=== PATIENT | male | born 1940 | race Caucasian/White ===

== ENCOUNTER 2017-03-25 15:18 | Inpatient (IN) | payer MEDICARE, BC ==
[2017-03-25] MEDS ORDERED: NS 0.9% 1000 ML* 1,000 ML IV ONE ×2 (15:51→19:59)
[2017-03-25 16:53] LABS: Hematocrit 38 % (42-52); Hemoglobin 12.6 g/dl (14.0-18.0); Mean Corpuscular HGB Conc 33 g/dl (31-36); Mean Corpuscular Hemoglobin 31 pg (27-31); Mean Corpuscular Volume 94 fL (80-94); Mean Platelet Volume 7 um3 (7.4-10.4); Red Blood Count 4.04 10^6/ul (4.0-5.4); Red Cell Distribution Width 14 % (10.5-15); White Blood Count 9.5 10^3/ul (3.5-10.8)
--- NOTE | 2017-03-25 17:04 | RAD ---
INDICATION: Productive cough. COMPARISON: There are no prior studies available for comparison. TECHNIQUE: Dual-energy PA and lateral views of the chest were obtained. FINDINGS: The heart appears to be within normal limits in size. The patient appears to be status post mitral valve surgery. The lungs are hyperinflated. There is an infiltrate which projects over the right midlung likely within the right upper lobe which is moderate in size. No pleural effusion is seen. IMPRESSION: RIGHT UPPER LOBE INFILTRATE, RECOMMEND FOLLOW-UP CHEST X-RAYS TO RESOLUTION.
[2017-03-25 17:05] LABS: Albumin 3.7 g/dL (3.2-5.2); BUN/Creatinine Ratio 16.1 (8-20); C Reactive Protein 204.01 mg/L (< 5.00); Calcium 8.9 mg/dL (8.6-10.3); EGFR African American 101.9 (>60); EGFR Non-African American 79.2 (>60); Globulin 3.5 g/dL (2-4); Total Bilirubin 0.6 mg/dL (0.2-1.0); Total Protein 7.2 g/dL (6.4-8.9)
[2017-03-25 17:08] LABS: Troponin I 0.02 ng/mL (<0.04)
[2017-03-25] MEDS ORDERED: Levofloxacin 750 MG IVPREMIX(* 750 MG/150 ML BAG IVPB ONE (17:41)
--- NOTE | 2017-03-25 22:16 | HP ---
CC: Derian Pickering MD, [facility] MEDICINE HISTORY AND PHYSICAL: DATE OF ADMISSION: 03/25/17 PRIMARY CARE PROVIDER: Derian Pickering MD in [place], [place]. ATTENDING PHYSICIAN: Rupinder Larson DO * (dictation provided by Genoveva Norris NP ) CHIEF COMPLAINT: Cough and fever. HISTORY OF PRESENT ILLNESS: Mr. Cervantes is a 77-year-old male with a past medical history of AFib, mitral valve repair, hypertension, hyperlipidemia, COPD , and prostate cancer status post radiation who presented to the hospital on with concern for cough and fever. Mr. Cervantes states he was in his normal state of health until about 4 days ago. Mr. Cervantes lives in [facility] and he came up to the [facility] on Monday to go hunting. His , who had a cold, joined him on Monday. The following day the patient noted that he then began to have some cold type symptoms, i.e. sniffling, runny nose, congestion and cough. By Monday, he was having fevers to 101.9 with diaphoresis and chills/rigors. He ultimately decided to come to the emergency room because he was having a small amount of blood in his sputum. He is on warfarin for history of atrial fibrilllation. He denies any chest pain. He has had no nausea, vomiting, diarrhea, abdominal pain. He does not feel short of breath. In the emergency room, Mr. Cervantes was confirmed to have an elevated INR to 4.01. He has no leukocytosis. He has a mild fever to 100.8. Chest x-ray shows concern for right upper lobe pneumonia. CRP is quite elevated to 204.01. He is not hypoxic on room air. PAST MEDICAL HISTORY: 1. Atrial fibrillation, status post ablation. 2. Mitral valve repair complicated by a staph infection at the femoral insertion site. 3. Gout. 4. Hypertension. 5. Hyperlipidemia. 6. COPD. 7. Asbestos exposure. 8. Prostate cancer with radiation. 9. Hernia repair x3. MEDICATIONS: 1. Aspirin 81 mg p.o. daily. 2. Warfarin 5 mg every day of the week except Monday when he takes 7.5 mg. 3. Allopurinol 300 mg p.o. daily. 4. Atorvastatin 10 mg p.o. 1700. 5. Diltiazem 120 mg p.o. daily. 6. Losartan 25 mg p.o. daily. ALLERGIES: No known drug allergies. FAMILY HISTORY: The patient reports his mom related to ALS and dad related to prostate cancer. SOCIAL HISTORY: The patient is a former smoker, he quit 30 years ago. He drinks about 3 to 4 alcoholic beverages per week. Denies any drug use. He lives with his significant other. At this point, he is not willing to name a healthcare proxy. REVIEW OF SYSTEMS: Positive for fevers. Positive for chills. No unintended weight loss. Cardiac: No chest pain. No edema. Respiratory: Positive for cough. Positive for minimal hemoptysis. No shortness of breath. GI: No nausea, vomiting, diarrhea, or abdominal pain. : No gross hematuria or dysuria. Neuro: No focal weakness or sensory loss. Eyes: No visual complaints. ENT: No dysphagia. Musculoskeletal: No arthralgias or myalgias. Skin: The patient has a small lump in his left groin, which he attributes to hematoma from his most recent hernia surgery. His current surgeon is aware and there is planned followup in May. The area is smaller now than initially and is resolving. Psych: No depression or anxiety. PHYSICAL EXAMINATION GENERAL: Mr. Cervantes is lying in bed with his significant other at the bedside. VITAL SIGNS: 100.8 temperature, heart rate 83, respiratory rate 29, O2 saturation 91% on room air, blood pressure 135/70. LUNGS: Clear to auscultation bilaterally, although they appear diminished on the right. There is good aeration. No accessory muscle use. HEART: S1, S2. No murmur, rub, or gallop and regular. ABDOMEN: Soft, nontender with bowel sounds positive x4. EXTREMITIES: No cyanosis or edema. NEURO: He is alert and oriented x3. He moves all extremities equally. There is no facial asymmetry or focal weakness. Extraocular movements are intact. SKIN: Intact. LABORATORY DATA/DIAGNOSTIC STUDIES: Sodium 135, potassium 4.0, chloride 102, serum bicarbonate 28, BUN 15, creatinine 0.93, glucose 115. CRP 204.01. WBC 9.5, hemoglobin 12.6, hematocrit 38, platelet count 214,000. INR 4.01. Chest x-ray shows upper right lobe infiltrate. EKG shows sinus rhythm with heart rate in 80s and ischemia. ASSESSMENT: Mr. Cervantes is a 77-year-old male with past medical history of atrial fibrillation status post ablation who continues on warfarin therapy as well as mitral valve repair, hypertension, hyperlipidemia, chronic obstructive pulmonary disease who presents to the hospital today with concern for cough and fever, found to have pneumonia. Our plans are for observation in the hospital for the followin. Pneumonia: Plan to treat with ceftriaxone and azithromycin as Levaquin is going to further disrupt his INR. Blood cultures have been sent. Urine, Legionella and Strep pneumo antigens are pending. The patient is not hypoxic on room air. His lactic acid is 1.0. He meets sepsis criteria. He is concerned for sepsis, although his temperature is only 100.8 and he is tachypneic. I will finish 30 mL/kg bolus by adding an additional 1645 mL fluids now. 2. Atrial fibrillation. The patient is supratherapeutic with his INR. Plan to hold warfarin. Recheck INR in the a.m. 3. Hypertension. Continue diltiazem and losartan. 4. DVT prophylaxis with supratherapeutic INR. 5. Code status is full code. TIME SPENT: Approximately 60 minutes were spent on the admission of this patient, and more than half of the time was spent with the patient at the bedside reviewing the events leading up to this hospitalization, performing the physical examination and reviewing the plan of care. GENOVEVA NORRIS NP [id number]/[facility] #: [id number] SUSAN
[2017-03-26] MEDS ORDERED: Azithromycin TAB* 250 MG PO ONE (09:00)
[2017-03-26] MEDS: Allopurinol TAB* 300 MG PO SCH (10:22)
[2017-03-26] MEDS: Losartan TAB* 25 MG PO SCH (10:22)
[2017-03-26] MEDS: cefTRIAXone VIAL(*) 1,000 MG in NS 0.9% 50 ML* 50 ML IVPB SCH (10:22)
[2017-03-26] MEDS: Diltiazem CD CAP* 120 MG PO SCH (10:22)
--- NOTE | 2017-03-26 10:57 | PN ---
Subjective Date of Service: 03/26/17 Interval History: This is a 77 yo male with afib, HTN, HLD, COPD and h/o prostate CA who presented with c/o cough and fever, admitted with a RUL PNA. He has been started on Ceftriaxone and azithromycin. He continues to have a productive cough and feels dyspneic with generalized malaise this am. No significant improvement since admission. Objective Active Medications: Acetaminophen (Tylenol Tab*) 650 mg PO Q6H PRN PRN Reason: FEVER Allopurinol (Zyloprim Tab*) 300 mg PO DAILY [facility] Last Admin: 03/26/17 10:22 Dose: 300 mg Atorvastatin Calcium (Lipitor*) 10 mg PO 1700 [facility] Diltiazem HCl (Cardizem Cd Cap*) 120 mg PO DAILY [facility] Last Admin: 03/26/17 10:22 Dose: 120 mg Ceftriaxone Sodium 1,000 mg/ (Sodium Chloride) 50 mls @ 200 mls/hr IVPB Q24H [facility] Last Admin: 03/26/17 10:22 Dose: 200 mls/hr Losartan Potassium (Cozaar Tab*) 25 mg PO DAILY [facility] Last Admin: 03/26/17 10:22 Dose: 25 mg Vital Signs: Temp Pulse Resp BP Pulse Ox 97.5 F 64 16 118/55 99 03/26/17 03:53 03/26/17 03:53 03/26/17 03:53 03/26/17 03:53 03/26/17 03:53 Oxygen Devices in Use Now: Nasal Cannula Appearance: Mildly ill 77 yo gentleman who appears slightly younger than stated age in NAD. Accompanied by his Respiratory: Symmetrical Chest Expansion and Respiratory Effort, Clear to Auscultation Cardiovascular: NL Sounds; No Murmurs; No JVD, RRR Abdominal: NL Sounds; No Tenderness; No Distention Extremities: No Edema Skin: No Rash or Ulcers Neurological: Alert and Oriented x 3 Result Diagrams: 03/25/17 16:25 03/25/17 16:25 Microbiology and Other Data: Microbiology 03/25/17 19:37 Gram Stain - Final Sputum Diagnostic Imaging: CXR - RUL PNA Assess/Plan/Problems-Billing Assessment: This is a 77 yo gentleman with afib, HTN, HLD, COPD, and h/o prostate CA and mitral valve repair who presents with c/o cough and SOB with a RUL infiltrate appreciated on CXR. - Patient Problems (1) Pneumonia Comment: RUL infiltrate Continues to be quite symptomatic Cont ceftriaxone/azithromycin (2) COPD (chronic obstructive pulmonary disease) Comment: No assoc exacerbation Use prn Duonebs (3) Atrial fibrillation Comment: Rate controlled Anticoagulated with Coumadin (4) Supratherapeutic INR Comment: INR 4 at admission with mild hemoptysis Holding Coumadin Repeat INR tomorrow (5) HTN (hypertension) Comment: Normotensive Cont home losartan and diltiazem (6) HLD (hyperlipidemia) Comment: Cont statin (7) Full code status (8) DVT prophylaxis Comment: Coumadin Status and Disposition: Transition to inpatient. Possible dc home tomorrow
[2017-03-26] MEDS ORDERED: Albuterol/Ipratropium NEB.SOL* Albuterol 2.5 MG/Ipratropium 0.5 MG 3 ML INH PRN (11:00)
--- NOTE | 2017-03-26 15:23 | ED ---
Kathia Rihcard Nilda, scribed for Scooter Barroso MD on 03/25/17 at 1650 . Respiratory - HPI Summary HPI Summary: This patient is a 77 year old M presenting to [facility] accompanied by with a chief complaint of hemoptysis today. Pt states cold symptoms began four days ago and progressively worsened. He reports exacerbated SOB from baseline (PMHx COPD), cough, rhinorrhea, and fever (102 F, last night). The patient denies CP. Symptoms are alleviated and aggravated by nothing. Pain is rated 0/10 in severity. - History of Current Complaint Chief Complaint: EDShortnessOfBreath Stated Complaint: SHORT OF BREATH,COUGH Time Seen by Provider: 03/25/17 15:51 Hx Obtained From: Patient Onset/Duration: Sudden Onset Pain Intensity: 0 Character: Cough (Productive), Dyspnea at Rest Sputum Color: Red (Blood) Aggravating Factor(s): Nothing Alleviating Factor(s): Nothing Associated Signs and Symptoms: Fever, SOB, Hemoptysis - Allergy/Home Medications Allergies/Adverse Reactions: Allergies Allergy/AdvReac Type Severity Reaction Status Date / Time No Known Allergies Allergy Verified 03/25/17 15:30 PMH/Surg Hx/FS Hx/Imm Hx Respiratory History: Reports: Hx Chronic Obstructive Pulmonary Disease (COPD) Sensory History: Denies: Hx Legally Blind EENT History: Denies: Hx Deafness Infectious Disease History: No Infectious Disease History: Denies: Traveled Outside the [place] in Last 30 Days - Family History Known Family History: Positive: Diabetes, Other - HLD, ALS - Social History Lives: With Family Alcohol Use: Weekly Substance Use Type: Reports: None Smoking Status (MU): Former Smoker Review of Systems Positive: Fever Positive: Nasal Discharge Negative: Chest Pain Positive: Shortness Of Breath, Cough - including hemoptysis All Other Systems Reviewed And Are Negative: Yes Physical Exam - Summary Physical Exam Summary: VITAL SIGNS: Reviewed. GENERAL: Patient is a well-developed and nourished male who is lying comfortable in the stretcher. Patient is not in any acute respiratory distress. HEAD AND FACE: No signs of trauma. No ecchymosis, hematomas or skull depressions. No sinus tenderness. EYES: PERRLA, EOMI x 2, No injected conjunctiva, no nystagmus. EARS: Hearing grossly intact. Ear canals and tympanic membranes are within normal limits. MOUTH: Oropharynx within normal limits. NECK: Supple, trachea is midline, no adenopathy, no JVD, no carotid bruit, no c- spine tenderness, neck with full ROM. CHEST: Symmetric, no tenderness at palpation LUNGS: No wheezing. Right lower lobe crackles. CVS: Regular rate and rhythm, S1 and S2 present, no murmurs or gallops appreciated. ABDOMEN: Soft, non-tender. No signs of distention. No rebound no guarding, and no masses palpated. Bowel sounds are normal. EXTREMITIES: FROM in all major joints, no edema, no cyanosis or clubbing. NEURO: Alert and oriented x 3. No acute neurological deficits. Speech is normal and follows commands. SKIN: Dry and warm. Febrile. Triage Information Reviewed: Yes Vital Signs On Initial Exam: Initial Vitals Temp Pulse Resp BP Pulse Ox 100.8 F 87 32 146/70 93 03/25/17 15:30 03/25/17 15:30 03/25/17 15:30 03/25/17 15:30 03/25/17 15:30 Vital Signs Reviewed: Yes - Roger Coma Scale Coma Scale Total: 15 Diagnostics - Vital Signs Vital Signs Temp Pulse Resp BP Pulse Ox 03/25/17 15:30 100.8 F 87 32 146/70 93 - Laboratory Result Diagrams: 03/25/17 16:25 03/25/17 16:25 Lab Statement: Any lab studies that have been ordered have been reviewed, and results considered in the medical decision making process. - Radiology CXR Radiology Interpretation Completed By: Radiologist - CXR, per radiologist, reveals right upper lobe infiltrate. Recommend follow-up chest x-rays to resolution. ED physician reviewed this report and agrees. - EKG 1616 Cardiac Rate: NL EKG Rhythm: Sinus Rhythm - 82 bpm EKG Interpretation: no ST elevation. Disposition - Course Assessment/Plan: This patient is a 77 year old M presenting to [facility] accompanied by with a chief complaint of hemoptysis today. Pt states cold symptoms began four days ago and progressively worsened. He reports exacerbated SOB from baseline (PMHx COPD), cough, rhinorrhea, and fever (102 F, last night) . The patient denies CP. Symptoms are alleviated and aggravated by nothing. Pain is rated 0/10 in severity. Pending labs, CXR, and EKG. EKG reveals NSR, 82 bpm, and no ST elevation. CXR, per radiologist, reveals right upper lobe infiltrate. Recommend follow-up chest x-rays to resolution. ED physician reviewed this report and agrees. [1748] Dr. Ireland (hospitalist) agrees to admit pt. In the ED course, the patient was given IV fluids and Levaquin. The pt is hemodynamically stable, alert and oriented x3. Pt will be admitted with Dx of PNA. - Diagnoses Provider Diagnoses: Pneumonia - Physician Notifications Discussed Care Of Patient With: Krupa Ireland - Hospitalist Time Discussed With Above Provider: 17:48 Instructed by Provider To: Admit As Inpatient Discharge - Discharge Plan Condition: Stable Disposition: ADMITTED TO [facility] Referrals: No Primary Care Phys,NOPCP [Primary Care Provider] - The documentation as recorded by the Kathia saucedo Nilda accurately reflects the service I personally performed and the decisions made by Dharmesh burgess Walter, MD.
[2017-03-26] MEDS ORDERED: Levofloxacin 750 MG IVPREMIX(* 750 MG/150 ML BAG IVPB SCH (18:00)
[2017-03-26] MEDS: Atorvastatin* 10 MG TAB PO SCH (18:26)
[2017-03-26] MEDS: Acetaminophen TAB* 325 MG PO PRN (23:41)
[2017-03-27 07:09] LABS: Hematocrit 36 % (42-52); Mean Corpuscular HGB Conc 34 g/dl (31-36); Mean Corpuscular Hemoglobin 32 pg (27-31); Mean Corpuscular Volume 94 fL (80-94); Mean Platelet Volume 7 um3 (7.4-10.4); Red Blood Count 3.82 10^6/ul (4.0-5.4); Red Cell Distribution Width 14 % (10.5-15); White Blood Count 7.4 10^3/ul (3.5-10.8)
[2017-03-27 07:22] LABS: BUN/Creatinine Ratio 14.1 (8-20); Calcium 9.2 mg/dL (8.6-10.3); EGFR Non-African American 87.9 (>60)
[2017-03-27] MEDS: Diltiazem CD CAP* 120 MG PO SCH (10:03)
[2017-03-27] MEDS: Losartan TAB* 25 MG PO SCH (10:03)
[2017-03-27] MEDS: Allopurinol TAB* 300 MG PO SCH (10:04)
[2017-03-27] MEDS: cefTRIAXone VIAL(*) 1,000 MG in NS 0.9% 50 ML* 50 ML IVPB SCH (10:06)
--- NOTE | 2017-03-27 11:41 | PN ---
Subjective Date of Service: 03/27/17 Interval History: Patient seen and examined at bedside Patient reports breathing improved. Still has cough. During cough he has bulging on left chest wall. Painful during cough but not painful at rest. States this started happening shortly after his admission. Still hypoxic requiring 1L of oxygen. Family History: Unchanged from Admission Social History: Unchanged from Admission Past Medical History: Unchanged from Admission Objective Active Medications: Acetaminophen (Tylenol Tab*) 650 mg PO Q6H PRN Albuterol/Ipratropium (Duoneb (Albuterol 2.5 Mg/Ipratropium 0.5 Mg)) 1 neb INH Q4H PRN Allopurinol (Zyloprim Tab*) 300 mg PO DAILY [facility] Atorvastatin Calcium (Lipitor*) 10 mg PO 1700 [facility] Diltiazem HCl (Cardizem Cd Cap*) 120 mg PO DAILY [facility] Ceftriaxone Sodium 1,000 mg/ (Sodium Chloride) 50 mls @ 200 mls/hr IVPB Q24H [facility] Losartan Potassium (Cozaar Tab*) 25 mg PO DAILY [facility] Vital Signs Temp Pulse Resp BP Pulse Ox 98.6 F 53 18 117/53 95 03/27/17 07:43 03/27/17 07:43 03/27/17 08:00 03/27/17 07:43 03/27/17 08:00 Oxygen Devices in Use Now: None Appearance: sitting up in bed, NAD Eyes: No Scleral Icterus, PERRLA Ears/Nose/Mouth/Throat: NL Teeth, Lips, Gums Neck: NL Appearance and Movements; NL JVP Respiratory: Symmetrical Chest Expansion and Respiratory Effort, Clear to Auscultation, - - when coughing bulge on R chest wall; No crepitus or palpable mass Cardiovascular: NL Sounds; No Murmurs; No JVD, RRR Abdominal: NL Sounds; No Tenderness; No Distention Extremities: No Edema Skin: No Rash or Ulcers Neurological: Alert and Oriented x 3, NL Muscle Strength and Tone Lines/Tubes/Other Access: Clean, Dry and Intact Peripheral IV Nutrition: Taking PO's Result Diagrams: 03/27/17 06:46 03/27/17 06:46 Microbiology and Other Data: . Diagnostic Imaging: CXR - RUL PNA Assess/Plan/Problems-Billing This is a 77 yo gentleman with afib, HTN, HLD, COPD, and h/o prostate CA and mitral valve repair who presents with c/o cough and SOB with a RUL infiltrate appreciated on CXR. - Patient Problems (1) Pneumonia Comment: Continue ceftriaxone and zithromax. Will get CT chest to assess L chest wall defect during coughing. Surgical consult to assess. Wean oxygen. (2) Supratherapeutic INR Comment: INR to 2.4. Restart warfarin tonight. (3) Atrial fibrillation Comment: Rate controlled. Anticoagulated with Coumadin (4) COPD (chronic obstructive pulmonary disease) Comment: Use prn Duonebs (5) HTN (hypertension) Comment: Normotensive. Continue home losartan and diltiazem (6) HLD (hyperlipidemia) Comment: Continue statin (7) DVT prophylaxis Current Visit: Yes Comment: INR 2.4 (8) Full code status Status and Disposition: Inpatient. Wean oxygen and will get chest CT to assess right chest wall defect.
--- NOTE | 2017-03-27 12:15 | RAD ---
INDICATION: Pneumonia seen on recent chest x-ray COMPARISON: Chest x-ray dated March 25, 2017 TECHNIQUE: Axial source images of the chest were acquired without intravenous contrast from just above the lung apices to the base of the diaphragm. Coronal and sagittal reconstructed images were acquired. FINDINGS: There are small bibasilar pleural effusions slightly larger on the right in the left. There is patchy density obscuring the right upper and dependent right lower lobes. In the anterior dependent aspect of the left upper lobe there is a focus of pleural-based groundglass density measuring up to 3.8 cm in greatest axial dimension. There is linear based density in the dependent portion of the left lower lobe. The heart is normal size. There is a prostatic mitral valve in place. There is no large pericardial effusion. Just above the level of the tracheal bifurcation there is a pretracheal lymph node measuring 1.5 x 2.5 cm in axial plane. Additional lymph nodes are seen but none are definitely pathologically enlarged. The osseous structures appear normal. Limited views of the upper abdomen show no acute abnormalities. IMPRESSION: There are patchy densities essentially involving all 5 lobes as described above in the presence of small bibasilar pleural effusions. Multifocal pneumonia versus pulmonary edema are deemed the most likely etiologies. Alternatively metastases and/or lymphogenic carcinomatosis could be considered if the patient has a known history of malignancy or elevated risk factors.
[2017-03-27] MEDS ORDERED: Warfarin TAB(*) 5 MG PO SCH (17:00)
[2017-03-27] MEDS: Atorvastatin* 10 MG TAB PO SCH (17:15)
[2017-03-27] MEDS: Acetaminophen TAB* 325 MG PO PRN (19:56)
--- NOTE | 2017-03-28 03:18 | CONS ---
CONSULTATION REPORT: DATE OF CONSULT: 03/27/17 REFERRING PROVIDER: Nancy Hernandez NP and hospitalist. REASON FOR CONSULTATION: Abnormal protuberance on coughing in the right anterior chest. HISTORY OF PRESENT ILLNESS: Mr. Cervantes is a 77-year-old gentleman with a history of atrial fibrillation, mitral valve repair, hypertension, hyperlipidemia, obstructive lung disease who quit smoking about 30 years ago, who presented and was admitted to [facility] on 03/25/17 with a pneumonia. He lives on [place], he has been up in the [facility] to go hunting and is here with his significant other. He developed some upper respiratory congestion, had a fever, diaphoresis, chills, and rigors, came to the emergency room and he had a chest x- ray showing concern for a right upper lobe pneumonia. He was admitted and started on IV antibiotics and oxygen. He had met sepsis criteria and was started on IV fluids. His initial chest x-ray showed findings as above. However, apparently in the last 24 to 48 hours, he has developed an unusual finding of a protuberance and bulge in the right anterior chest below the clavicle when he coughs. He has no pain at rest but somewhat uncomfortable when he coughs. He has had no hemoptysis. He has noted no pain at rest or back pain. He has had no neck pain, shoulder pain, or arm swelling. He is quite sure that this only started about 48 hours ago and denies recent trauma. He has never had open thoracic or cardiac surgery but did have a mitral valve repair through a percutaneous groin approach. Today, he underwent a CAT scan of the chest. I did review these images. Lying in the supine position, there are apparently significant patchy densities in all 5 lobes consistent with pneumonia with a small right pleural effusion. However, there is no evidence of extrapleural air or pneumothorax or subcutaneous air. There is no obvious rib or bony structural abnormality noted. Heart was of normal size. Surgical consultation was obtained. PAST MEDICAL HISTORY: 1. Atrial fibrillation. 2. Mitral valve repair. 3. Gout. 4. Hypertension. 5. COPD. 6. Prostate cancer. MEDICINES: 1. Aspirin. 2. Warfarin. 3. Allopurinol. 4. Atorvastatin. 5. Diltiazem. 6. Losartan. ALLERGIES: He has no known drug allergies. SOCIAL HISTORY: He is a former smoker, quit about 30 years ago. Drinks 3 to 4 alcoholic beverages per week. He is retired. He lives with his significant other. PHYSICAL EXAM: He is lying in bed with no significant complaints, appears to be in no apparent distress. He is afebrile. Heart rate is 59, oxygen saturation about 99% on 2 L of oxygen nasal cannula. Trachea was midline. There were no crepitants in the neck, shoulder, anterior or posterior chest. His breath sounds are equal bilaterally with some expiratory wheezing bilaterally. There are no prior surgical incisions on the anterior or the posterior chest. There is no evidence of instability of the rib cage anteriorly or posteriorly. There is no tenderness over the sternum or manubrium. There is no costal angle tenderness. Heart sounds were regular rate and rhythm. While coughing with the closed glottis, there is, however, a prominent protuberance with intrathoracic increase in pressure with a bulge that shows itself over the right anterior upper chest area. Difficult to determine if this is unstable rib or muscle protuberance. It is minimally tender on deeper palpation. IMPRESSION: Unusual protuberance with coughing in the right anterior chest. He says it has only been present for the last 2 to 3 days and he has been admitted and treated here for pneumonia. CAT scan of the chest shows normal chest wall and there is no prior rib injury, surgery, or abnormality noted on physical examination other than when he is coughing. I am not certain as to the etiology of this. I do not believe this is an acute finding that will require urgent intervention. He seems to be getting from his pneumonia, we will continue with his IV antibiotics. It would be jacome to obtain a thoracic surgical opinion. I will have Dr. Chawla tomorrow to evaluate him and review the CT scan, but I suspect that there would be no intervention or further recommendations at this point. Also obviously of consideration is that this may have been present for many years, it is obvious now that he is coughing harder and more aware of this as he has been noticed by the nurses and that this is not necessarily a new occurrence Thanks you for this consultation. We will follow him with you. [id number]/[facility] #: [id number] SUSAN
[2017-03-28 08:49] VITALS: BP 120/70
[2017-03-28] MEDS: Diltiazem CD CAP* 120 MG PO SCH (09:08)
[2017-03-28] MEDS: Losartan TAB* 25 MG PO SCH (09:08)
[2017-03-28] MEDS: Allopurinol TAB* 300 MG PO SCH (09:08)
[2017-03-28] MEDS ORDERED: Azithromycin TAB* 250 MG PO ONE (09:20)
--- NOTE | 2017-03-28 09:25 | DCNOTE ---
Subjective Date of Service: 03/28/17 Interval History: Patient seen and examined at bedside. Patient off oxygen and feels better. Persistent cough with lung hernia. Afebrile. Family History: Unchanged from Admission Social History: Unchanged from Admission Past Medical History: Unchanged from Admission Objective Active Medications: Acetaminophen (Tylenol Tab*) 650 mg PO Q6H PRN Albuterol/Ipratropium (Duoneb (Albuterol 2.5 Mg/Ipratropium 0.5 Mg)) 1 neb INH Q4H PRN Allopurinol (Zyloprim Tab*) 300 mg PO DAILY [facility] Atorvastatin Calcium (Lipitor*) 10 mg PO 1700 [facility] Azithromycin (Zithromax Tab*) 500 mg PO ONCE ONE Diltiazem HCl (Cardizem Cd Cap*) 120 mg PO DAILY [facility] Ceftriaxone Sodium 1,000 mg/ (Sodium Chloride) 50 mls @ 200 mls/hr IVPB Q24H [facility] Losartan Potassium (Cozaar Tab*) 25 mg PO DAILY [facility] Warfarin Sodium (Coumadin Tab(*)) 5 mg PO SUMOWETHFRSA@1700 [facility] Warfarin Sodium (Coumadin Tab(*)) 7.5 mg PO TU@1700 [facility] Vital Signs Temp Pulse Resp BP Pulse Ox 97.5 F 59 18 120/70 96 03/28/17 08:14 03/28/17 08:14 03/28/17 08:14 03/28/17 08:14 03/28/17 08:14 Oxygen Devices in Use Now: None Appearance: sitting up in bed, NAD Eyes: No Scleral Icterus, PERRLA Ears/Nose/Mouth/Throat: NL Teeth, Lips, Gums Neck: NL Appearance and Movements; NL JVP Respiratory: Symmetrical Chest Expansion and Respiratory Effort, Clear to Auscultation Cardiovascular: NL Sounds; No Murmurs; No JVD, RRR Abdominal: NL Sounds; No Tenderness; No Distention Extremities: No Edema Skin: No Rash or Ulcers Neurological: Alert and Oriented x 3, NL Muscle Strength and Tone Lines/Tubes/Other Access: Clean, Dry and Intact Peripheral IV Nutrition: Taking PO's Result Diagrams: 03/27/17 06:46 03/27/17 06:46 Microbiology and Other Data: . Diagnostic Imaging: CXR - RUL PNA Assess/Plan/Problems-Billing This is a 77 yo gentleman with afib, HTN, HLD, COPD, and h/o prostate CA and mitral valve repair who presents with c/o cough and SOB with a RUL infiltrate appreciated on CXR. - Patient Problems (1) Pneumonia (2) Supratherapeutic INR (3) Atrial fibrillation (4) COPD (chronic obstructive pulmonary disease) (5) HTN (hypertension) (6) HLD (hyperlipidemia) (7) DVT prophylaxis (8) Full code status Status and Disposition: Inpatient. Stable to be discharged home. See full dictated summary.
[2017-03-28] MEDS ORDERED: guaiFENesin ER TAB 600 MG PO SCH (10:00)
[2017-03-28] MEDS: cefTRIAXone VIAL(*) 1,000 MG in NS 0.9% 50 ML* 50 ML IVPB SCH (10:29)
[2017-03-28] MEDS ORDERED: Warfarin TAB(*) 7.5 MG PO SCH (17:00)
--- NOTE | 2017-03-29 00:51 | DS ---
CC: Dr. Derian Pickering* DISCHARGE SUMMARY: DATE OF ADMISSION: 03/25/17 DATE OF DISCHARGE: 03/28/17 PRIMARY CARE PROVIDER: Dr. Derian Pickering in [place], [place], phone number [phone]. ATTENDING PHYSICIAN: Dr. Reid Serrano * (report dictated by Nancy Hernandez NP). PRIMARY DIAGNOSES: 1. Community acquired pneumonia. 2. Lung hernia. SECONDARY DIAGNOSES: 1. Atrial fibrillation, status post ablation. 2. Status post mitral valve repair. 3. Hypertension. 4. Hyperlipidemia. 5. Chronic obstructive pulmonary disease. 6. Asbestos exposure. STUDIES WHILE IN THE HOSPITAL: 1. Chest x-ray PA and lateral, right upper lobe infiltrate. Recommend followup chest x-ray to resolution. 2. Chest CT without contrast. There are patchy densities essentially involving all 5 lobes as described above in the presence of small bibasilar pleural effusions. Multifocal pneumonia versus pulmonary edema are deemed the most likely etiologies. Alternatively, metastases and/or lymphogenic carcinomatosis could be considered if the patient has a known history of malignancy or elevated risk factors. MEDICATIONS AT THE TIME OF DISCHARGE: New medications: 1. Zithromax Z-Eduard 500 mg today, then 1 tablet for 4 more days. 2. Vantin 200 mg oral every 12 hours for 5 additional days. 3. Mucinex 1200 mg oral twice daily. The following medications are changed: 1. Warfarin 5 mg oral daily. 2. Aspirin 81 mg oral daily. 3. Cozaar 25 mg oral daily. 4. Cardizem CD 120 mg oral daily. 5. Lipitor 10 mg oral at 1700. 6. Allopurinol 300 mg oral daily. HISTORY OF PRESENT ILLNESS AND HOSPITAL COURSE: Mr. Cervantes is a 77-year-old male with a history of AFib, hypertension, hyperlipidemia, COPD, who presented to the emergency room on 03/25/17 with cough and fever. The patient was visiting [place] from out of town. He presented to the emergency room with a fever of 101 and cold symptoms. The patient was found to have a right upper lobe infiltrate and admitted to the medical floor for further therapy. The patient was placed on Zithromax and ceftriaxone. He was provided with supplemental oxygen. The patient was also given IV fluids. With these medications, the patient's tachycardia improved and gradually the patient was able to be weaned off oxygen. Currently, he is satting 96% on room air. The patient did have a significant cough and shortly after his admission, he developed what we suspect to be a lung hernia. There was an area of his lung that was pocketing out while he would cough. The patient was seen in consultation by Surgery, please see their consultation for detail. For now, there is no treatment indicated. Because of this finding, the patient went on to have a CT of his chest. This showed multiple opacities including a pleural based density measuring up to 3.8 cm in the axial dimension. Given the patient' s history of asbestosis, this could possibly be mesothelioma. Because the [place] and is currently therapeutic on warfarin, recommendation was for him to follow up with his primary care provider to pursue a biopsy of this area in the next few weeks. The patient's INR was supratherapeutic on admission with a value of 4. Warfarin was held and restarted and on the day of discharge, the patient's INR was therapeutic at 2.4. The patient will continue 5 mg nightly and have an INR checked next Monday. Heart rate was controlled during this hospitalization with Cardizem. The patient's blood pressure was controlled with Cozaar and Cardizem. On 03/28/17,vitals were as follows: Temperature 97.5, heart rate 59, respiratory rate 18, blood pressure 120/70, oxygen saturation 96% . At this point, the patient was stable for discharge. DISCHARGE PLAN: The patient is discharged on a regular diet. The patient was instructed to follow up with his primary care provider on Monday. At that time , he should have an INR draw. In addition, the patient will be given a CD of his CAT scan to bring to his primary care provider so that they can discuss further biopsies of the densities found on his chest CT. The patient should return to the hospital if he experiences any worsening shortness of breath or fever. I have reviewed all these instructions with the patient and he is agreeable with this discharge today. TIME SPENT: Time for the discharge was 60 minutes, and 35 minutes was spent with the patient discussing medications at discharge, and followup instructions. CONDITION ON DISCHARGE: Stable. NANCY HERNANDEZ NP [id number]/[facility] #: [id number] SUSAN
== END 2017-03-28 11:30 | disposition home or self-care (01) | DRG 195 ==
LOC: ED 15:18 → MED 19:24 → OBSVTOIN 03-26 11:02
PROVIDERS: ADMIT Hospitalist; ATTEND Internal Medicine
DX: J18.8 Other pneumonia, unspecified organism (principal); I48.91 Unspecified atrial fibrillation; J44.9 Chronic obstructive pulmonary disease, unspecified; J98.4 Other disorders of lung; E78.5 Hyperlipidemia, unspecified; I10 Essential (primary) hypertension; Z77.090 Contact with and (suspected) exposure to asbestos; M10.9 Gout, unspecified; Z85.46 Personal history of malignant neoplasm of prostate; Z79.01 Long term (current) use of anticoagulants; Z79.82 Long term (current) use of aspirin; Z79.899 Other long term (current) drug therapy; Z80.42 Family history of malignant neoplasm of prostate; Z87.891 Personal history of nicotine dependence
CPT/HCPCS: 36415; 71020; 71250; 80048; 80053; 82550; 82553; 83605; 83880; 84484; 85025; 85610; 85730; 86140; 87040; 87070; 87205; 87899; 93005; A9270-GY; J0696